=== PATIENT | male | born 1985 | race Caucasian/White ===

== ENCOUNTER 2019-09-18 21:20 | Emergency (ER) | payer BC ==
[2019-09-18] MEDS ORDERED: Bupivacaine 0.5% 10 ML SDV INJECT ONE (21:34)
--- NOTE | 2019-09-18 21:37 | EDM.PDOC ---
ED HPI GENERAL MEDICAL PROBLEM - General Chief Complaint: Laceration Stated Complaint: finger injury Time Seen by Provider: 09/18/19 21:34 Source of Information: Reports: Patient History Limitations: Reports: No Limitations - History of Present Illness INITIAL COMMENTS - FREE TEXT/NARRATIVE: The patient is an unfortunate 34-year-old male who presents emergency department today with complaint of right index finger laceration. Patient reports he was in his normal state of health until approximately 2 hours prior to arrival when he was moving things in his garage and dropped a piece of metal onto his right finger which crushed the distal end of his right finger. Patient has a 2 cm linear laceration over the middle phalanx of the volar aspect of his right index finger he also has a 2 cm linear laceration on the dorsum of his DIP of his right index finger, there is no tendon dysfunction noted at this time distal neurovascular is intact, patient is right-hand dominant Right Finger-Index Pain Score (Numeric/FACES): 5 - Related Data Allergies Allergy/AdvReac Type Severity Reaction Status Date / Time hydromorphone [From Dilaudid] Allergy Severe Vomiting Verified 09/18/19 21:37 Home Meds: Home Meds Amoxicillin/Clavulanate K [Augmentin 875-125 MG] 1 tab PO BID #14 tablet 09/18/19 [Rx] ED ROS GENERAL - Review of Systems Review Of Systems: See Below Constitutional: Denies: Fever, Chills Musculoskeletal: Reports: Other (laceration) ED EXAM, SKIN/RASH Exam: See Below Exam Limited By: No Limitations General Appearance: Alert, WD/WN, Mild Distress Nose: Normal Inspection, Normal Mucosa, No Blood Throat/Mouth: Normal Inspection, Normal Lips, Normal Teeth, Normal Gums, Normal Oropharynx, Normal Voice, No Airway Compromise Head: Atraumatic, Normocephalic Neck: Normal Inspection, Supple, Non-Tender, Full Range of Motion Respiratory/Chest: No Respiratory Distress, Lungs Clear, Normal Breath Sounds, No Accessory Muscle Use, Chest Non-Tender Cardiovascular: Normal Peripheral Pulses, Regular Rate, Rhythm, No Edema, No Gallop, No JVD, No Murmur, No Rub GI/Abdominal: Normal Bowel Sounds, Soft, Non-Tender, No Organomegaly, No Distention, No Abnormal Bruit, No Mass Extremities: Other (2 cm linear laceration over the middle phalanx right index finger partial dermis thickness no active bleeding no foreign body noted, 2 cm linear laceration over the dorsum of the right index finger over the DIP joint vascular is intact no tendon dysfunction noted at this time) Skin: Warm, Dry ED SKIN PROCEDURES - Additional/Other Procedure(s) Other (Free Text) Procedure(s): Laceration repair: Laceration #1 2 cm linear laceration on the dorsum of the right index finger partial dermis thickness no active bleeding no foreign body noted laceration extends from middle phalanx of distal phalanx over the DIP joint, no tendon dysfunction noted at this time, digital block 0.5% 10 ml complete anesthesia was obtained, wound was cleansed with Betadine and saline wound was closed with number four 4-0 Ethilon simple interrupted sutures, patient tolerated procedure well, dressing by nursing Laceration repair: Laceration number two 2 cm linear laceration on the volar aspect of the middle phalanx of the right index finger close to the PIP joint, wound was cleansed with Betadine and saline digital block with 0.5% Marcaine 10 mL's complete anesthesia was obtained, wound was closed with number four 4-0 Ethilon simple interrupted sutures, patient tolerated procedure well, dressing by nursing Course - Vital Signs Last Recorded V/S: Last Vital Signs Temp 98.5 F 09/18/19 21:27 Pulse 77 09/18/19 21:27 Resp 20 09/18/19 21:27 BP 134/79 09/18/19 21:27 Pulse Ox 99 09/18/19 21:27 - Orders/Labs/Meds Orders: Active Orders 24 hr Category Date Time Status Vaccines to be Administered [RC] PER UNIT ROUTINE Care 09/18/19 22:17 Active Fingers Second Digit Rt F6 [CR] Stat Exams 09/18/19 21:34 Taken Meds: Medications Discontinued Medications Generic Name Dose Route Start Last Admin Trade Name Freq PRN Reason Stop Dose Admin Bupivacaine HCl 10 ml 09/18/19 21:34 09/18/19 21:46 Sensorcaine-Mpf 0.5% INJECT 09/18/19 21:35 10 ml ONETIME ONE Administration Cefazolin Sodium 2 gm 09/18/19 22:32 Ancef IM 09/18/19 22:33 ONETIME ONE Diphtheria/Tetanus/Acell Pertussis 0.5 ml 09/18/19 22:17 09/18/19 22:29 Adacel IM 09/18/19 22:18 0.5 ml .ONCE ONE Administration - Re-Assessments/Exams Free Text/Narrative Re-Assessment/Exam: 09/18/19 22:41 Discussed case with is to follow-up with the patient in the office tomorrow or Thursday to call office tomorrow for follow-up appointment Departure - Departure Time of Disposition: 22:41 Disposition: Home, Self-Care 01 Clinical Impression: Fracture of middle phalanx of right index finger Qualifiers: Encounter type: initial encounter Fracture type: open Fracture alignment: nondisplaced Qualified Code(s): S62.650B - Nondisplaced fracture of middle phalanx of right index finger, initial encounter for open fracture - Discharge Information *PRESCRIPTION DRUG MONITORING PROGRAM REVIEWED*: No *COPY OF PRESCRIPTION DRUG MONITORING REPORT IN PATIENT CESIA: No Prescriptions: Amoxicillin/Clavulanate K [Augmentin 875-125 MG] 1 tab PO BID #14 tablet Referrals: Ron Ramires PA-C [Primary Care Provider] - Forms: ED Department Discharge Additional Instructions: Home, rest, keep wound clean and dry, clean wound daily apply Neosporin and bandage, wear splint in an anatomical position, return as needed for worsening condition, follow-up with Dr. Benson tomorrow please call his office in the morning for appointment at [phone] Sepsis Event Note (ED) - Focused Exam Vital Signs: Vital Signs Temp Pulse Resp BP Pulse Ox 09/18/19 21:27 98.5 F 77 20 134/79 99 - My Orders Last 24 Hours: My Active Orders 09/18/19 21:34 Fingers Second Digit Rt F6 [CR] Stat 09/18/19 22:17 Vaccines to be Administered [RC] PER UNIT ROUTINE - Assessment/Plan Last 24 Hours: My Active Orders 09/18/19 21:34 Fingers Second Digit Rt F6 [CR] Stat 09/18/19 22:17 Vaccines to be Administered [RC] PER UNIT ROUTINE
[2019-09-18] MEDS ORDERED: Diphtheria,Pertussis(Acell),Tetanus Vaccine 0.5 ML Syringe IM ONE (22:17)
[2019-09-18] MEDS ORDERED: ceFAZolin 1 GM Vial IM ONE ×2 (22:32→23:01)
[2019-09-18] MEDS ORDERED: Lidocaine 1% 10 ML MDV IM ONE (23:00)
--- NOTE | 2019-09-19 07:15 | CR ---
Right 2nd finger: 3 views centered to the right 2nd finger were obtained. Comparison: No prior right 2nd finger study. Fracture is identified within the distal aspect of the middle phalanx of the right 2nd digit. Alignment is close to anatomic. Soft tissue swelling is noted. No additional abnormality is appreciated. Impression: 1. Middle phalanx fracture as described above. 2. Soft tissue swelling. Diagnostic code #3 This report was dictated in MDT
== END 2019-09-18 23:15 | disposition home or self-care (01) ==
LOC: JD.ED 21:20
DX: S62.650B Nondisplaced fracture of middle phalanx of right index finger, initial encounter for open fracture (principal); Z88.5 Allergy status to narcotic agent; Z23 Encounter for immunization; W20.8XXA Other cause of strike by thrown, projected or falling object, initial encounter
CPT/HCPCS: 12002; 73140; 90471; 90715; 96372; 99283; J0690; J2001; J3490